=== PATIENT | male | born 2000 | race Caucasian/White ===

== ENCOUNTER 2020-10-05 00:25 | Emergency (ER) | payer BC ==
[2020-10-05 01:10] LABS: #Eosinphils 0.1 thou/uL (0.0-0.7); #Lymphocytes 1.3 thou/uL (1.20-3.40); #Monocytes 0.6 thou/uL (0.11-0.59); %Basophils 0.5 % (0.0-1.0); %Eosinophils 0.8 % (0.0-10.0); %Lymphocytes 14.4 % (21.0-51.0); %Monocytes 6.8 % (0.0-10.0); %Neutrophils 77.5 % (42.0-75.0); Hemoglobin 16.2 g/dL (14.0-18.0); Mean Corpuscular HGB CONC 35.5 g/dL (32.0-36.0); Mean Corpuscular Hemoglobin 30.6 pg (27.0-31.0); Mean Corpuscular Volume 86.4 fL (78.0-98.0); Mean Platelet Volume 7.3 fL (7.4-10.4); Platelet Count 210 thou/uL (130-400); RBC Distribution Width 11.5 % (11.5-14.5); Red Blood Cell (RBC) Count 5.28 mill/uL (4.70-6.10)
[2020-10-05 01:30] LABS: ALT (SGPT) 12 U/L (8-55); AST (SGOT) 18 U/L (5-34); Albumin 4.4 g/dL (3.5-5.0); Alkaline Phosphatase 44 U/L (40-110); Anion Gap 16 mmol/L (10-20); BUN (Urea Nitrogen) 18 mg/dL (8.9-20.6); Bilirubin, Total 0.9 mg/dL (0.2-1.2); Calc. Creatinine Clearance 0 mL/min (70-130); Calcium 9.2 mg/dL (7.8-10.44); Carbon Dioxide 23 mmol/L (22-29); Chloride 102 mmol/L (98-107); Estimated GFR-MDRD 59; Globulin 2.9 g/dL (2.4-3.5); Glucose 125 mg/dL (70-105); Potassium 4.1 mmol/L (3.5-5.1); Protein, Total 7.3 g/dL (6.0-8.3); Sodium 137 mmol/L (136-145)
--- NOTE | 2020-10-05 07:48 | CT ---
PRELIMINARY REPORT/[facility]/EMERGENCY AFTER HOURS PROCEDURE EXAM: CT Head and Cervical Spine Without IV contrast. CLINICAL HISTORY: Patient is a 20-year-old male presenting via EMS for altered mental status and head injury. TECHNIQUE: Axial computed tomography images were acquired of the head and the cervical spine without intravenous contrast. Sagittal and coronal reformatted images were obtained of the cervical spine. COMPARISON: None provided. FINDINGS: BRAIN: No acute intraparenchymal hemorrhage. No mass lesion. No CT evidence for acute territorial infarct. N o midline shift or extra-axial collection. VENTRICLES No hydrocephalus. ORBITS The orbits are unremarkable. SINUSES AND MASTOIDS The paranasal sinuses and mastoid air cells are clear. SOFT TISSUES Left parietal scalp laceration is present. BONES No acute osseous pathology evident. No acute fracture is evident on images of the head or cervical spine. DISKS/DEGENERATIVE CHANGES No significant disc or facet degeneration. Posterior cervical spine vertebral body alignment is within normal limits. IMPRESSION: 1. No acute intracranial findings. No acute intracranial injury evident. 2. No cervical spine fracture evident. ELECTRONICALLY SIGNED BY: Alicja Lyon MD Oct 05, 2020 1:15:20 AM PSYCHOLOGY TECHNICIAN This report is intended for review by the ordering physician only, in accordance of law. If you recei ve this report in error, please call [facility] at [phone]. FINAL REPORT EXAM: Brain CT without IV contrast: Exam done on an emergency after hours basis 12:52 AM 10/05/2020 This a final report. No mass or bleed or other acute process. This report is in agreement with the preliminary report. Transcribed Date/Time: 10/05/2020 8:10 AM
--- NOTE | 2020-10-05 07:51 | CT ---
PRELIMINARY REPORT/[facility]/EMERGENCY AFTER HOURS PROCEDURE EXAM: CT Head and Cervical Spine Without IV contrast. CLINICAL HISTORY: Patient is a 20-year-old male presenting via EMS for altered mental status and head injury. TECHNIQUE: Axial computed tomography images were acquired of the head and the cervical spine without intravenous contrast. Sagittal and coronal reformatted images were obtained of the cervical spine. COMPARISON: None provided. FINDINGS: BRAIN: No acute intraparenchymal hemorrhage. No mass lesion. No CT evidence for acute territorial infarct. N o midline shift or extra-axial collection. VENTRICLES No hydrocephalus. ORBITS The orbits are unremarkable. SINUSES AND MASTOIDS The paranasal sinuses and mastoid air cells are clear. SOFT TISSUES Left parietal scalp laceration is present. BONES No acute osseous pathology evident. No acute fracture is evident on images of the head or cervical spine. DISKS/DEGENERATIVE CHANGES No significant disc or facet degeneration. Posterior cervical spine vertebral body alignment is within normal limits. IMPRESSION: 1. No acute intracranial findings. No acute intracranial injury evident. 2. No cervical spine fracture evident. ELECTRONICALLY SIGNED BY: Alicja Lyon MD Oct 05, 2020 1:15:20 AM HIDE CURER This report is intended for review by the ordering physician only, in accordance of law. If you recei ve this report in error, please call [facility] at [phone]. FINAL REPORT EXAM: Brain CT without IV contrast: Emergency after exam 12:50 AM 10/05/2020 This a final report. No fracture or dislocation This report is in agreement with the preliminary report. Transcribed Date/Time: 10/05/2020 8:11 AM
--- NOTE | 2020-10-05 07:55 | RAD ---
EXAM: Chest one view: HISTORY: Syncope altered mental status found on ground COMPARISON: None FINDINGS: Heart size: Within normal limits. Lungs: Clear of acute process. No evidence for confluent lobar pneumonia, significant pleural effusion, acute edema, or pneumothorax , or other significant acute process. IMPRESSION: No significant acute intrathoracic disease.
== END 2020-10-05 02:20 | disposition home or self-care (01) ==
LOC: ERS 00:25
DX: S06.0X9A Concussion with loss of consciousness of unspecified duration, initial encounter (principal); W22.8XXA Striking against or struck by other objects, initial encounter
CPT/HCPCS: 12001; 36415; 70450; 71045; 72125; 80053; 85025; 93005; 94760